=== PATIENT | male | born 1990 | race Caucasian/White ===

== ENCOUNTER → 2020-01-18 | Outpatient (CLI) | payer OTHER, SELFPAY | END | disposition home or self-care (01) | LOC: MTDU 01-22 14:35 | PROVIDERS: PCP Family Medicine; Referring Provider Nurse Practitioner Family; Visit Provider Nurse Practitioner Family | DX: Z20.828 Contact with and (suspected) exposure to other viral communicable diseases (principal) | CPT/HCPCS: 87635; C9803; U0003 ==

== ENCOUNTER 2020-03-12 21:39 | Emergency (ER) | payer OTHER, SELFPAY ==
[2020-03-12 21:39] VITALS: BP 127/84; PULSE 90; RESP 16; TEMP 36.5; O2SAT 97; BMI 26.7
[2020-03-12 23:07] LABS: Absolute Lymphocyte Count 3.14 X10^3/uL (0.83-4.51); Absolute Neutrophil Count 6.1 X10^3/uL (2.0-7.7); Basophil% 0.9 % (0-1); Eosinophil# 0.98 X10^3/uL; Eosinophils% 8.7 % (0-5); Hematocrit 54.4 % (40-54); Lymphocyte # 3.14 X10^3/ul (4.0); Lymphocyte % 27.9 % (19-41); Mean Corp Hgb Conc 33.5 g/dL (32-36); Mean Corpuscular Hgb 30.4 pg (27.0-32.0); Mean Platelet Vol. 9.4 fl (6.2-12.0); Monocyte# 0.92 X10^3/uL; Monocyte% 8.2 % (0-10); NRBC Flagged by Analyzer 0 % (0-5); Neutrophil # 6.11 X10^3/uL (2.7-7.7); Neutrophil % 54.1 % (47-70); Platelet Count 269 K/mm3 (150-450); RBC Distribution Width CV 11.9 % (11.6-14.6); RBC Distribution Width SD 40.4 fl (35.1-43.9); Red Blood Count 5.98 M/mm3 (4.6-6.2); White Blood Count 11.3 K/mm3 (4.4-11.0)
[2020-03-12 23:12] LABS: Hemoglobin 18.2 g/dL (13.0-16.5)
[2020-03-12 23:15] LABS: Anion Gap 8 (5-15); BUN 10 mg/dL (7-18); BUN/Creat Ratio 9.3 RATIO (10-20); Calcium,Total 9.2 mg/dL (8.5-10.1); Chloride 104 mmol/L (98-107); Creatinine, Serum 1.07 mg/dL (0.70-1.30); EST Glomerular Filtration Rate 87 mL/min (>60); Est Glom Filt Rate - Afr Amer 105 mL/min (>60); Estimated Creatinine Clearance 101.87 ml/min; Glucose 99 mg/dL (74-106); Potassium 3.9 mmol/L (3.5-5.1); Sodium Level 141 mmol/L (136-145)
[2020-03-12 23:36] LABS: Color, Urine Yellow (Yellow); Glucose, Dipstick Normal (Normal); Ketone-Dipstick Negative (Negative); Leukocyte Esterase-Dipstick Negative /ul (Negative); Mucous, Urine 0 SEEN /hpf (<or=2+); Nitrite-Dipstick Negative (Negative); Occult Blood-Urine Negative /ul (Negative); Protein-Dipstick Negative (Negative); Red Blood Cells-Urine 0 SEEN /hpf (0-5); Specific Gravity, Urine 1.015 (1.002-1.030); Squamous Epithelial Cells - UA 0 SEEN /hpf (0-5); Urine Bilirubin Dipstick Negative (Negative); Urine Clarity Clear (Clear); Urine Urobilinogen Normal (Normal); White Blood Cells 0 SEEN /hpf (0-5)
[2020-03-12 23:42] LABS: Bacteria 3+ /hpf (None Seen)
[2020-03-13] VITALS: BP 120/91; PULSE 77; RESP 15; O2SAT 95
--- NOTE | 2020-03-13 01:24 | ED.VIS.GEN ---
History of Present Illness Chief Complaint: Abd Pain Informant: Patient Onset: Yesterday Current Severity: Mild Maximum Severity: Moderate Narrative: Patient presents secondary to right lower quad abdominal pain. He states last evening before he went to bed he had a mild abdominal ache. He woke around 1 AM this morning with right and left lower quadrant abdominal pain. He was seen at [facility] earlier today where his blood work, urine, and x-ray were only significant for constipation. He was given a laxative and states he did have multiple bowel movements this afternoon. He continues to have worsened pain on the right lower quadrant. He called [facility] nurse hotline and was advised to come in for further evaluation. - Past Medical History (1) GERD (gastroesophageal reflux disease) Status: Chronic (2) ADHD Status: Chronic Past Medical History - Allergies and Home Meds Allergies/Adverse Reactions: Allergies aspirin Allergy (Verified 03/12/20 21:42) Angioedema Primary Care Physician: Yoel Davis MD [Primary Care Provider] - Prior records reviewed: Yes Lives: Spouse/ Significant Other Smoking Status: Never smoker Review of Systems General: Denies: Chills, Fever Eyes: Denies: Visual changes - bilaterally ENT: Denies: Bilateral ear pain Cardiovascular: Denies: Chest pain Respiratory: Denies: Dyspnea, Cough Gastrointestinal: Reports: Abdominal pain. Denies: Vomiting Genitourinary: Denies: Dysuria Musculoskeletal: Denies: Swelling, Extremity Pain Skin: Denies: Rash Hematologic: Denies: Easy bruising Allergy: Denies: Uticaria Physical Exam Vital Signs/Narrative: Vital Signs Temp Pulse Resp BP Pulse Ox 03/13/20 00:00 77 15 120/91 H 95 03/12/20 21:39 97.7 F L 90 16 127/84 H 97 General: Well nourished, Well developed Head: Normocephalic ENT: Moist mucous membranes Neck: Supple Cardiovascular: Regular rate, Regular rhythm Respiratory: No distress, CTA bilaterally Abdomen: Soft, Tender - Mild tenderness in the right lower quadrant.. Negative for: Guarding, Rebound tenderness Skin: Normal color Neurological: Alert, Oriented x3 Psychological: Normal affect Diagnostic/Tx/Re-eval Impressions Abdomen/Pelvis CT 03/13/20 22:54 IMPRESSION: Focal fat infiltration adjacent to the mid descending colon, probably representing epiploic appendagitis. Prominent liquid feces in the colon may be the result of technetium citrate administration. Colon otherwise appears normal with no evidence for diverticulitis or mural thickening. Mild enlargement of the prostate gland, possibly representing prostatitis. No evidence for appendicitis. No evidence for bowel obstruction or ileus. No demonstrated urinary calculus or hydronephrosis. Electronically Signed: Alex Denney MD at 1:13 EST , Service support , 03/13/20 22:54 Abdomen/Pelvis WITH Contrast [CT] Stat Laboratory Results 03/12/20 03/12/20 03/12/20 22:20 22:20 23:20 WBC 11.3 H RBC 5.98 Hgb 18.2 H* Hct 54.4 H MCV 91.0 MCH 30.4 MCHC 33.5 RDW Std Deviation 40.4 RDW Coeff of Annika 11.9 Plt Count 269 MPV 9.4 Immature Gran % (Auto) 0.200 Neut % (Auto) 54.1 Lymph % (Auto) 27.9 [place] % (Auto) 8.2 Eos % (Auto) 8.7 H Baso % (Auto) 0.9 Absolute Neuts (auto) 6.1 Absolute Lymphs (auto) 3.14 Nucleated RBC % 0 Sodium 141 Potassium 3.9 Chloride 104 Carbon Dioxide 29.0 Anion Gap 8 BUN 10 Creatinine 1.07 Estim Creat Clear Calc 101.87 Est GFR (MDRD) Af Amer 105 Est GFR (MDRD) Non-Af 87 BUN/Creatinine Ratio 9.3 L Glucose 99 Calcium 9.2 Urine Color Yellow Urine Clarity Clear Urine pH 7.0 Ur Specific [place] 1.015 Urine Protein Negative Urine Glucose (UA) Normal Urine Ketones Negative Urine Occult Blood Negative Urine Nitrite Negative Urine Bilirubin Negative Urine Urobilinogen Normal Ur Leukocyte Esterase Negative Urine RBC 0 SEEN Urine WBC 0 SEEN Ur Squamous Epith Cells 0 SEEN Urine Bacteria 3+ Urine Mucus 0 SEEN - Medical Decision Making Patient declined anything for pain or nausea while the emergency room. Blood work from earlier today at [facility] was reviewed. Hemoglobin is slightly more concentrated. White count is minimally elevated tonight. Urine does show 3+ bacteria but no nitrites or leukocyte esterase. This will be sent for a culture. CT scan was reviewed with the patient. He does have possible epiploic appendagitis noted in the mid descending colon. There is no evidence of colitis or appendicitis. No evidence of renal calculi. Patient is reassured with the findings. He is given return instructions. He was advised that if his urine culture reveals need for antibiotic he will be contacted. He voices understanding and agreement. ED Disposition - Plan for ED Patient: Disposition: Home or Assisted Living Diagnosis: Abdominal pain Instructions: ED Unknown Causes of Abdominal ... Referrals: Yoel Davis MD [Primary Care Provider] - 3-5 Days if not improving
[2020-03-13 01:34] VITALS: RESP 16
--- NOTE | 2020-03-13 22:54 | CT_ITS ---
STUDY: CT ABDOMEN AND PELVIS WITH CONTRAST REASON FOR EXAM: Male, 29 years old. RLQ PAIN X 1 DAY, INCREASED TONIGHT, ELEVATED WBC, HIGH HGB, SEEN THIS AM AT ANOTHER FACILITY AND GIVEN MAG CITRATE-PRODUCED STOOL, DX WITH CONSTIPATION RADIATION DOSAGE (If Supplied By Facility): CTDIvol = ( 15.14 ) mGy, DLP = ( 864.62 ) mGycm TECHNIQUE: Transaxial images were obtained from the dome of the diaphragm to the symphysis pubis with oral contrast. Oral and amp; IV Readi-CAT and amp; 80mL Isovue-370 was administered. Sagittal and coronal images were reconstructed. Individualized dose optimization techniques were used for this CT. COMPARISON: None. FINDINGS: The visualized lung bases are unremarkable. The visualized portions of the heart are within normal limits. Normal liver. Normal gallbladder and extrahepatic biliary system. Normal spleen. Normal pancreas. Normal bilateral adrenal glands. Normal right kidney. Normal left kidney. Normal visualized stomach. Normal small intestine. Other somewhat prominent liquid feces in the colon, which is probably the result of magnesium citrate administration. As seen on axial images 79-82, there is focal infiltration of fat anterior to the mid descending colon. The adjacent colon appears normal with no demonstrated mural thickening and there are no visualized diverticula. While the appearance is nonspecific, epiploic appendagitis is the most likely etiology. The appendix is visualized on axial images 63-71 and it appears normal.. Normal abdominal aorta. Normal inferior vena cava. Normal retroperitoneum. Normal urinary bladder. The prostate gland is prominent in size for the patient''s age. There is a small left inguinal hernia, which contains fat, but no bowel. There are no visualized acute osseous abnormalities. CT/Abdomen/Pelvis WITH Contrast IMPRESSION: Focal fat infiltration adjacent to the mid descending colon, probably representing epiploic appendagitis. Prominent liquid feces in the colon may be the result of technetium citrate administration. Colon otherwise appears normal with no evidence for diverticulitis or mural thickening. Mild enlargement of the prostate gland, possibly representing prostatitis. No evidence for appendicitis. No evidence for bowel obstruction or ileus. No demonstrated urinary calculus or hydronephrosis. Electronically Signed: Alex Denney MD at 1:13 EST , Service support ,
== END 2020-03-13 01:34 | disposition home or self-care (01) ==
PROVIDERS: Emergency Provider Emergency Medicine; PCP Family Medicine
DX: R10.31 Right lower quadrant pain (principal); K21.9 Gastro-esophageal reflux disease without esophagitis; F90.9 Attention-deficit hyperactivity disorder, unspecified type; Z79.899 Other long term (current) drug therapy
CPT/HCPCS: 74177; 80048; 81001; 85025; 87086; 99283; Q9967

== ENCOUNTER → 2020-05-13 09:24 | Outpatient (CLI) | payer OTHER, SELFPAY ==
[2020-05-13 13:07] LABS: Absolute Lymphocyte Count 1.86 X10^3/uL (0.83-4.51); Absolute Neutrophil Count 3.8 X10^3/uL (2.0-7.7); Basophil# 0.09 X10^3/uL; Basophil% 1.3 % (0-1); Eosinophil# 0.85 X10^3/uL; Eosinophils% 12.2 % (0-5); Hematocrit 52.4 % (40-54); Hemoglobin 17.6 g/dL (13.0-16.5); Lymphocyte # 1.86 X10^3/ul (4.0); Lymphocyte % 26.6 % (19-41); Mean Corp Hgb Conc 33.6 g/dL (32-36); Mean Corpuscular Hgb 30.7 pg (27.0-32.0); Mean Corpuscular Volume 91.3 fL (80-94); Mean Platelet Vol. 9.5 fl (6.2-12.0); Monocyte# 0.37 X10^3/uL; Monocyte% 5.3 % (0-10); NRBC Flagged by Analyzer 0 % (0-5); Neutrophil # 3.79 X10^3/uL (2.7-7.7); Neutrophil % 54.2 % (47-70); Platelet Count 264 K/mm3 (150-450); RBC Distribution Width CV 12.3 % (11.6-14.6); RBC Distribution Width SD 41.2 fl (35.1-43.9); Red Blood Count 5.74 M/mm3 (4.6-6.2)
[2020-05-13 13:29] LABS: AST(SGOT) 27 U/L (15-37); Alanine Aminotransfer ALT/SGPT 51 U/L (16-61); Albumin, Serum 4.1 g/dL (3.2-5.0); Alkaline Phosphatase 63 U/L (45-117); Anion Gap 6 (5-15); BUN 10 mg/dL (7-18); Bilirubin, Direct 0.16 mg/dL (0.00-0.30); Calcium,Total 9.2 mg/dL (8.5-10.1); Chloride 107 mmol/L (98-107); Creatinine, Serum 1.11 mg/dL (0.70-1.30); EST Glomerular Filtration Rate 83 mL/min (>60); Est Glom Filt Rate - Afr Amer 100 mL/min (>60); Globulin 3.4 g/dL (2.2-4.2); Glucose 133 mg/dL (74-106); Potassium 3.8 mmol/L (3.5-5.1); Protein, Total 7.5 g/dL (6.4-8.2); Sodium Level 138 mmol/L (136-145)
[2020-05-13 13:51] LABS: Hepatitis B Surface Antibody Non-Reactive; Hepatitis B Surface Antigen Non-Reactive (Nonreactive); Hepatitis C Antibody Non-Reactive (Nonreactive)
[2020-05-16 20:07] LABS: QNTFERON TB Mitogen Value > 10.00 IU/mL (.); QNTFERON TB Nil Value 0.11 IU/mL (.); QNTFERON TB2+ Ag Value 0.35 IU/mL (.)
[2020-05-16 21:04] LABS: Hepatitis B Core Ab Total Negative (Negative); QNTIFERON TB Positive Criteria Negative (Negative)
== END ==
PROVIDERS: PCP Family Medicine; Referring Provider Dermatology; Visit Provider Dermatology
DX: L40.0 Psoriasis vulgaris (principal)
CPT/HCPCS: 36415; 80048; 80076; 85025; 86480; 86704; 86706; 86803; 87340